=== PATIENT | female | born 1950 | race Caucasian/White ===

== ENCOUNTER → 2017-01-27 | Outpatient (CLI) | payer BC, OTHER ==
[~2017-01-27] MED LIST: ASPEC325 PO; B-COCAP2 PO; OMEG10007 PO; TRAMTAB5 PO
--- NOTE | 2017-01-28 07:56 | MAMMOGRAPHY REPORT ---
BILATERAL DIGITAL SCREENING MAMMOGRAM WITH CAD: 01/27/2017 CLINICAL HISTORY: Routine screening. Patient has no complaints. TECHNIQUE: Bilateral CC and MLO views were obtained. Current study was also evaluated with a Comput er Aided Detection (CAD) system. COMPARISON: Comparison is made to exams dated: 01/24/2016 mammogram, 01/17/2015 mammogram, 12/19/2014 mammogram, 12/17/2013 mammogram, 12/16/2012 mammogram, and 12/16/2011 mammogram - [facility]. BREAST COMPOSITION: The tissue of both breasts is extremely dense, which lowers the sensitivity of mammography. FINDINGS: The parenchymal pattern is similar to prior exams. There are stable bilateral microcalci fications. No developing mass, architectural distortion or cluster of suspicious microcalcification s is seen in either breast. IMPRESSION: ACR BI-RADS CATEGORY 2: BENIGN There is no mammographic evidence of malignancy. A 1 year screening mammogram is recommended. The p atient will receive written notification of the results. Approximately 10% of breast cancers are not detected with mammography. A negative mammographic repor t should not delay biopsy if a clinically suggestive mass is present. Vita Gonzalez M.D. ay/:01/27/2017 16:26:04 Top Precipitator Operator: Mindy MADRID(Todd)(Tobin)(BD), [facility] letter sent: Normal 1/2 BI-RADS Code: ACR BI-RADS Category 2: Benign
== END | disposition home or self-care (01) ==
LOC: C.MAMM 08:40
PROVIDERS: ATTEND Obstetrics & Gynecology
DX: Z12.31 Encounter for screening mammogram for malignant neoplasm of breast (principal)

== ENCOUNTER → 2017-04-08 | Outpatient (CLI) | payer BC, OTHER | END | disposition home or self-care (01) | LOC: C.PAPS 09:14 | PROVIDERS: ATTEND Obstetrics & Gynecology | DX: Z01.419 Encounter for gynecological examination (general) (routine) without abnormal findings (principal) ==

== ENCOUNTER → 2018-01-12 | Outpatient (CLI) | payer BC ==
--- NOTE | 2018-01-12 11:00 | DIAGNOSTIC IMAGING REPORT ---
LUMBAR SPINE 5 VIEWS HISTORY: Leg pain. SCIATICA COMPARISON: None. FINDINGS: There is no fracture. No subluxation. Levoscoliosis of the lumbar spine. This results in moderate left and mild right facet osteoarthritis within the lower lumbar spine. There appear to be 6 lumbar-type vertebral bodies. L6 demonstrates partial sacralization on the left with pseudoarthrosis of the sacrum. There is a hypoplastic L6 S1 disc space. Small endplate osteophytes within the lumbar spine. Mild disc space narrowing at L5 L6. A 7 mm stone within the lower pole of the right kidney. IMPRESSION: 1. No fracture or subluxation within the lumbar spine. 2. Levoscoliosis. 3. Degenerative changes within the lower lumbar spine as described above. 4. Right-sided nephrolithiasis. Electronically signed by: Tirso Ontiveros M.D. 01/12/2018 10:59 AM Dictated Date/Time: 01/12/2018 10:55 AM
== END | disposition home or self-care (01) ==
LOC: C.RAD 10:33
PROVIDERS: ATTEND Family Medicine
DX: M79.606 Pain in leg, unspecified (principal); M54.30 Sciatica, unspecified side; M41.86 Other forms of scoliosis, lumbar region; M47.816 Spondylosis without myelopathy or radiculopathy, lumbar region; N20.0 Calculus of kidney

== ENCOUNTER → 2018-04-27 | Outpatient (CLI) | payer BC | END | disposition home or self-care (01) | LOC: C.PAPS 15:43 | PROVIDERS: ATTEND Obstetrics & Gynecology | DX: Z01.419 Encounter for gynecological examination (general) (routine) without abnormal findings (principal) ==